=== PATIENT | male | born 1990 ===

== ENCOUNTER 2021-07-13 23:16 | Inpatient (IN) | payer SELFPAY ==
[~2021-07-13] VITALS: Ht 167.6 cm; Wt 97.3 kg
[2021-07-13 23:40] VITALS: BP 123/66; PULSE 77; TEMP 99.8
--- NOTE | 2021-07-13 23:45 | NUR ---
Pt admitted to room 303 per EMS transport from [facility], alert and oriented x4, able to ambulated from cart to bed, becomes SOA with activity, currently on 3L, required up to 5L until he was settled in bed. Ivy ALVES notified of pt's arrival for orders. Pt oriented to room, POC, and COVID precautions.
[2021-07-14 01:11] VITALS: BP 130/83; PULSE 72; TEMP 99.1
[2021-07-14 05:06] VITALS: BP 130/77; PULSE 73; TEMP 99.2
--- NOTE | 2021-07-14 06:00 | NUR ---
pt on 3L O2 this am, able to rest in bed, up to restroom ad [place], no increased SOA reported.
[2021-07-14 07:18] LABS: MEAN CELL VOLUME 88 fl (80.0-100.0); MEAN CORPUSCULAR HEMOGLOBIN 31 pg (27.0-31.0); MEAN CORPUSCULAR HGB CONC 35 g/dl (33.0-37.0); MEAN PLATELET VOLUME 11.1 fl (7.4-10.4); PLATELET COUNT 201 K/mm3 (130-400); RED BLOOD COUNT 4.23 M/mm3 (4.20-5.60); REDCELL DISTRIBUTION WIDTH-CV 12.3 % (11.5-14.5)
[2021-07-14 07:35] LABS: CALCIUM 7.6 mg/dL (8.4-10.2); CREATININE, serum 0.92 mg/dL (0.72-1.25); MAGNESIUM 2.1 mg/dL (1.6-2.6); POTASSIUM 3.2 mmol/L (3.5-4.5)
[2021-07-14 08:23] LABS: BAND 3 % (0-10); BASOPHIL 1 % (0-2); EOSINOPHIL 1 % (0-4)
[2021-07-14 08:24] LABS: LYMPHOCYTE 14 % (20.0-51.0); NEUTROPHILS 75 % (42.0-75.2); PLATELET ESTIMATE NORMAL (NORMAL)
[2021-07-14 09:33] VITALS: BP 127/77; PULSE 73; TEMP 98.8
[2021-07-14 11:53] VITALS: BP 121/69; PULSE 83; TEMP 99.5
[2021-07-14 17:39] VITALS: BP 131/81; PULSE 54; TEMP 98.5
--- NOTE | 2021-07-14 18:28 | NUR ---
PT HAD UNEVENTFUL AFTERNOON, MAINTAINED O2 SATS WITH 3 L NC. UP AD IDANIA. PT TOLERATING REGULAR DIET, DRINKING ADEQUATLEY. POTASSIUM REPLACED.
[2021-07-14 19:37] VITALS: BP 128/77; PULSE 61; TEMP 97.8
[2021-07-15 00:58] VITALS: BP 113/64; PULSE 56; TEMP 98
[2021-07-15 06:52] LABS: HEMATOCRIT 37.7 % (42.0-52.0); HEMOGLOBIN 13.1 g/dl (13.5-18.0); MEAN CELL VOLUME 87 fl (80.0-100.0); MEAN CORPUSCULAR HEMOGLOBIN 30 pg (27.0-31.0); MEAN CORPUSCULAR HGB CONC 35 g/dl (33.0-37.0); MEAN PLATELET VOLUME 11.6 fl (7.4-10.4); PLATELET COUNT 219 K/mm3 (130-400); RED BLOOD COUNT 4.35 M/mm3 (4.20-5.60)
[2021-07-15 07:51] LABS: ALBUMIN 2.6 gm/dL (3.5-5.0); CALCIUM 9.2 mg/dL (8.4-10.2); CREATININE, serum 0.84 mg/dL (0.72-1.25); PHOSPHOROUS 3.5 mg/dL (2.3-4.7); POTASSIUM 3.7 mmol/L (3.5-4.5)
[2021-07-15 08:05] LABS: MAGNESIUM 2.3 mg/dL (1.6-2.6)
[2021-07-15 08:06] LABS: C-REACTIVE PROTEIN 13.32 mg/dL (0.00-0.50)
[2021-07-15 08:27] LABS: BAND 3 % (0-10); METAMYELOCYTE 1 % (0-0); NEUTROPHILS 64 % (42.0-75.2)
[2021-07-15 08:28] LABS: LYMPHOCYTE 24 % (20.0-51.0); PLATELET ESTIMATE NORMAL (NORMAL)
[2021-07-15 09:34] VITALS: BP 113/70; PULSE 66; TEMP 97.7
--- NOTE | 2021-07-15 11:04 | NUR ---
PT RESTING IN BED. MORNING MEDICATIONS GIVEN. SHIFT ASSESSMENT COMPLETED. DENIES ANY PAIN OR NEEDS. WILL CONTINUE TO MONITOR. ON 3L NC AT THIS TIME.
[2021-07-15 12:12] VITALS: BP 121/67; PULSE 65; TEMP 98.5
--- NOTE | 2021-07-15 12:23 | NUR ---
SW called patient on room phone as well as cell to complete intake. SW unable to reach patient to complete intake. SW called nurse to assist with providing phone to patient and providing that case management would be calling. SW will continue to follow up to complete intake.
[2021-07-15 17:22] VITALS: BP 115/70; PULSE 78; TEMP 98.6
[2021-07-15 19:24] VITALS: BP 104/60; PULSE 68; TEMP 98.9
[2021-07-16 00:32] VITALS: BP 131/83; PULSE 55; TEMP 98.4
[2021-07-16 04:42] VITALS: BP 121/71; PULSE 60; TEMP 97.6
--- NOTE | 2021-07-16 06:19 | NUR ---
Patient rested quietly throughout the night, tolerating O2@3L per NC, no c/o pain, will continue to monitor.
[2021-07-16 06:45] LABS: HEMATOCRIT 37.3 % (42.0-52.0); HEMOGLOBIN 13.2 g/dl (13.5-18.0); MEAN CELL VOLUME 87 fl (80.0-100.0); MEAN CORPUSCULAR HEMOGLOBIN 31 pg (27.0-31.0); MEAN CORPUSCULAR HGB CONC 35 g/dl (33.0-37.0); MEAN PLATELET VOLUME 11.6 fl (7.4-10.4); PLATELET COUNT 292 K/mm3 (130-400); RED BLOOD COUNT 4.28 M/mm3 (4.20-5.60); REDCELL DISTRIBUTION WIDTH-CV 12.1 % (11.5-14.5)
[2021-07-16 07:10] LABS: ALBUMIN 2.6 gm/dL (3.5-5.0); BILIRUBIN,TOTAL 0.8 mg/dL (0.2-1.2); CALCIUM 8.2 mg/dL (8.4-10.2); CREATININE, serum 0.9 mg/dL (0.72-1.25); POTASSIUM 3.7 mmol/L (3.5-4.5); TOTAL PROTEIN 7.1 gm/dL (6.2-8.1)
[2021-07-16 07:55] LABS: ALBUMIN 2.6 gm/dL (3.5-5.0); C-REACTIVE PROTEIN 5.94 mg/dL (0.00-0.50); MAGNESIUM 2.2 mg/dL (1.6-2.6); PHOSPHOROUS 3.4 mg/dL (2.3-4.7)
[2021-07-16 08:11] LABS: BAND 3 % (0-10); BASOPHIL 1 % (0-2); LYMPHOCYTE 32 % (20.0-51.0); NEUTROPHILS 61 % (42.0-75.2); PLATELET ESTIMATE NORMAL (NORMAL)
[2021-07-16 09:13] VITALS: BP 110/64; PULSE 63; TEMP 98.1
--- NOTE | 2021-07-16 11:17 | NUR ---
PT RESTING IN BED. MORNING MEDICAIONS GIVEN. SHIFT ASSESSMENT COMPLETED. PT ON 3L NC. DENIES ANY PAIN OR NEEDS. WILL CONTINUE TO MONITOR.
[2021-07-16 12:31] VITALS: BP 103/52; PULSE 75; TEMP 97.9
[2021-07-16 16:24] VITALS: BP 129/75; PULSE 64; TEMP 98.6
--- NOTE | 2021-07-16 16:30 | NUR ---
The patient is COVID positive. SW contacted the patient to discuss discharge plan. The patient lives in [place] with his brother, Hafsa (ph#[phone]). He reports independence with ADLs and does not have any DME. He states that he does not have a PCP and that he utilizes the [facility]. The patient confirms that he is self pay. SW consulted financial counseling. The patient does not have a DPOA-HC. He reports that he is not and does not have any children. He states that his parents are alive, but that they [place] in [place]. He is from [facility]. The patient reports that he has five brothers and three sisters. The patient plans to return home with his brother upon discharge. SW to continue to monitor. *Discharge plan: home with brother*
[2021-07-16 20:42] VITALS: BP 107/63; PULSE 70; TEMP 98
[2021-07-17 01:00] VITALS: BP 113/76; PULSE 55; TEMP 98.4
[2021-07-17 05:38] VITALS: BP 122/71; PULSE 52; TEMP 98
--- NOTE | 2021-07-17 06:13 | NUR ---
Patient rested quietly throughout night, tolerating room air, educated on covid, vaccine, breathing exercises and medications- verbalizes understanding, updated on plan of care.
[2021-07-17 06:43] LABS: HEMATOCRIT 40.1 % (42.0-52.0); MEAN CELL VOLUME 87 fl (80.0-100.0); MEAN CORPUSCULAR HEMOGLOBIN 30 pg (27.0-31.0); MEAN CORPUSCULAR HGB CONC 35 g/dl (33.0-37.0); MEAN PLATELET VOLUME 10.9 fl (7.4-10.4); PLATELET COUNT 366 K/mm3 (130-400); REDCELL DISTRIBUTION WIDTH-CV 12.3 % (11.5-14.5)
[2021-07-17 07:11] LABS: ALBUMIN 2.7 gm/dL (3.5-5.0); C-REACTIVE PROTEIN 2.97 mg/dL (0.00-0.50); CALCIUM 8.1 mg/dL (8.4-10.2); CREATININE, serum 0.96 mg/dL (0.72-1.25); MAGNESIUM 2.2 mg/dL (1.6-2.6); PHOSPHOROUS 4.1 mg/dL (2.3-4.7); POTASSIUM 3.8 mmol/L (3.5-4.5)
[2021-07-17 07:42] LABS: BAND 1 % (0-10); LYMPHOCYTE 30 % (20.0-51.0); MYELOCYTE 4 % (0-0); NEUTROPHILS 58 % (42.0-75.2); PLATELET ESTIMATE NORMAL (NORMAL)
[2021-07-17 08:32] VITALS: BP 113/69; PULSE 80; TEMP 98.2
--- NOTE | 2021-07-17 09:37 | NUR ---
PT RESTING IN BED. MORNING MEDICATIONS GIVEN. SHIFT ASSESSMENT COMPLETED. PT DENIES ANY NEEDS AT THIS TIME. ON ROOM AIR. IV TO R HAND IS INFILTRATED, WILL SEE IF THERE ARE ANY DISCHARGE PLANS BEFORE STARTING A NEW ONE.
[2021-07-17 11:48] VITALS: BP 118/70; PULSE 75; TEMP 98.2
[2021-07-17 16:33] VITALS: BP 116/67; PULSE 113; TEMP 98.4
[2021-07-17 20:00] VITALS: BP 125/80; PULSE 77; TEMP 98.4
--- NOTE | 2021-07-17 20:30 | NUR ---
Patient is resting in bed listening to music. Alert and oriented x 4, VSS, RA, denies SOB. The only complain is that he can not speak loud because his voice is hoarse. Assessment completed, medications provided. No further needs at this time. Call light within reach.
[2021-07-18 01:27] VITALS: BP 108/63; PULSE 54; TEMP 98.1
[2021-07-18 05:31] VITALS: BP 116/70; PULSE 55; TEMP 97.8
[2021-07-18 06:47] LABS: HEMATOCRIT 40.3 % (42.0-52.0); HEMOGLOBIN 14.1 g/dl (13.5-18.0); MEAN CELL VOLUME 88 fl (80.0-100.0); MEAN CORPUSCULAR HEMOGLOBIN 31 pg (27.0-31.0); MEAN CORPUSCULAR HGB CONC 35 g/dl (33.0-37.0); PLATELET COUNT 342 K/mm3 (130-400); RED BLOOD COUNT 4.56 M/mm3 (4.20-5.60); REDCELL DISTRIBUTION WIDTH-CV 12.3 % (11.5-14.5)
[2021-07-18 07:04] LABS: CREATININE, serum 0.98 mg/dL (0.72-1.25); POTASSIUM 4.1 mmol/L (3.5-4.5)
--- NOTE | 2021-07-18 07:04 | NUR ---
Patient has had a calm night, all needs met. Denies SOB. Shift report given to dayshift nurse.
[2021-07-18 07:37] LABS: ALBUMIN 2.8 gm/dL (3.5-5.0); C-REACTIVE PROTEIN 1.87 mg/dL (0.00-0.50); MAGNESIUM 2.1 mg/dL (1.6-2.6); PHOSPHOROUS 4.5 mg/dL (2.3-4.7)
[2021-07-18 07:49] LABS: BAND 5 % (0-10); LYMPHOCYTE 30 % (20.0-51.0); METAMYELOCYTE 1 % (0-0); NEUTROPHILS 56 % (42.0-75.2); PLATELET ESTIMATE NORMAL (NORMAL)
[2021-07-18 07:54] VITALS: BP 101/45; PULSE 90; TEMP 97.6
--- NOTE | 2021-07-18 09:15 | NUR ---
PT PLEASANT, AOX4, DENIES PAIN, DENIES N/V/D, EAGER FOR DISCHARGE, ON 2L ENTERING ROOM, ASSESSMENT PERFORMED, MEDICATIONS GIVEN, LH INT FLUSHED W/O DISCOMFORT, NO REDNESS OR DRAINAGE, NO OTHER NEEDS
[2021-07-18] MEDS ORDERED: DECADRON6 MG PO (09:47)
[2021-07-18] MEDS ORDERED: PROAIR HFA0.09 MG/AC IH (09:52)
--- NOTE | 2021-07-18 11:01 | NUR ---
An exercise oximetry was ordered. The patient did not qualify for oxygen. The clinical team is ready to discharge the patient today. ANAMIKA contacted the patient to follow up. He reports that his brother will be able to come and pick him up later today. He reports that he will be able to afford his presciptions. ANAMIKA discussed getting set up at the [facility] in [place] for follow up care. The patient was not interested in SW getting him set up at [facility] in [place]. He asked that ANAMIKA just provide him with the information and he can call them on his own. ANAMIKA provided [facility]'s information in the patient's discharge folder. No additional needs at this time.
[2021-07-18 11:31] VITALS: BP 110/65; PULSE 115; TEMP 97.5
--- NOTE | 2021-07-18 12:52 | NUR ---
DISCHARGE EDUCATION PROVIDED, REMDESIVIR FINISHED INFUSING AND IV DISCONTINUED, QUESTIONS ANSWERED AT THIS TIME, NO OTHER NEEDS
--- NOTE | 2021-07-18 15:34 | NUR ---
PT ESCORTED OUT VIA WHEELCHAIR WITH PT BELONGINGS, NO OTHER QUESTIONS ABOUT DISCHARGE
== END 2021-07-18 15:34 | disposition home or self-care (01) | DRG 177 ==
LOC: MEDICAL 23:16
PROVIDERS: Internal Medicine; Internal Medicine Sleep Medicine; Student in an Organized Health Care Education/Training Program; ADMIT Internal Medicine
PROC: XW033E5 Introduction of Remdesivir Anti-infective into Peripheral Vein, Percutaneous Approach, New Technology Group 5 (ICD-10-PCS; principal; 2021-07-13)
DX: U07.1 COVID-19 (principal); J12.82 Pneumonia due to coronavirus disease 2019; J96.01 Acute respiratory failure with hypoxia; N17.9 Acute kidney failure, unspecified; R65.10 Systemic inflammatory response syndrome (SIRS) of non-infectious origin without acute organ dysfunction; J45.909 Unspecified asthma, uncomplicated; E87.6 Hypokalemia; Z73.0 Burn-out
CPT/HCPCS: 99223-AI; 99232-AI; 99233-AI; 99239; J0696; J1100; J1650; J7050; J8540